=== PATIENT | male | born 1945 | race Caucasian/White ===

== ENCOUNTER 2019-06-21 09:25 | Emergency (ER) | payer MEDICARE ==
[~2019-06-21] VITALS: Ht 182.9 cm; Wt 88.5 kg
[2019-06-21 09:25] VITALS: BP_SYST 135
[2019-06-21] MEDS ORDERED: TRANEXAMIC ACID 1,000 MG/10 ML VIAL IV ONE (10:00)
[2019-06-21 10:03] LABS: BASOPHILS # (AUTO) 0.1 K/uL (0.0-0.2); BASOPHILS % (AUTO) 0.6 % (0.0-2.0); EOSINOPHILS # (AUTO) 0.1 K/uL (0.0-0.4); EOSINOPHILS % (AUTO) 0.7 % (0.0-4.0); HEMATOCRIT 44.8 % (36-54); HEMOGLOBIN 15.5 g/dL (14.0-18.0); LYMPHOCYTES # (AUTO) 1.6 K/uL (1.0-5.5); LYMPHOCYTES % (AUTO) 19.5 % (20.5-51.5); MEAN CORPUSCULAR HEMOGLOBIN 33 pg (27-31); MEAN CORPUSCULAR HGB CONC 35 % (32-36); MEAN CORPUSCULAR VOLUME 94 fL (79.0-98.0); MONOCYTES # (AUTO) 0.8 K/uL (0.0-1.0); NEUTROPHILS # (AUTO) 5.7 K/uL (1.8-7.7); NEUTROPHILS % (AUTO) 69.2 % (40.0-70.0); PLATELET COUNT (AUTO) 153 K/uL (130-430); RED BLOOD CELL COUNT(AUTO) 4.77 MIL/uL (4.2-6.2); RED CELL DISTRIBUTION WIDTH 13.8 % (9.0-15.0); WHITE BLOOD COUNT (AUTO) 8.3 K/uL (4.8-10.8)
[2019-06-21 10:18] LABS: INR 4.9 (0.80-1.20); PROTHROMBIN TIME 46.5 SECS (9.5-12.5)
[2019-06-21] MEDS ORDERED: PHYTONADIONE Non-Formulary 5 MG TABLET PO ONE (10:30)
[2019-06-21 12:25] VITALS: BP_SYST 135
== END 2019-06-21 12:25 | disposition home or self-care (01) ==
LOC: SED 09:25
DX: R04.0 Epistaxis (principal); E11.9 Type 2 diabetes mellitus without complications; I10 Essential (primary) hypertension
CPT/HCPCS: 30901; 36415; 85025; 85610; 99284; J3490